=== PATIENT | male | born 1930 | race Caucasian/White ===

== ENCOUNTER 2021-08-11 18:22 | Emergency (ER) | payer OTHER ==
[~2021-08-11] VITALS: Ht 172.7 cm; Wt 72.6 kg
[2021-08-11 18:43] LABS: ABSOLUTE NEUTROPHILS 3.3 thou/uL (1.4-8.2); BASOPHILS 0.8 % (0.0-2.0); EOSINOPHILS 1.7 % (0.0-3.0); HEMATOCRIT 33.8 % (42.0-52.0); HEMOGLOBIN 11.4 gm/dL (14.0-18.0); LYMPHOCYTES 19.3 % (24.0-44.0); MCH 31.3 pg (26.0-34.0); MCHC 33.6 g/dL (28.0-37.0); MCV 93.2 fL (80.0-100.0); PLATELET COUNT 140 thou/uL (150-400); POLYS 69.2 % (36.0-66.0); RBC 3.63 mil/uL (4.50-6.00); RDW 14.5 % (10.5-14.5); WBC 4.8 thou/uL (4.0-11.0)
[2021-08-11 18:55] LABS: CALCIUM 8.5 mg/dL (8.5-10.1); CREATININE 1.7 mg/dL (0.7-1.3); POTASSIUM 4.4 mmol/L (3.5-5.1)
[2021-08-11 19:01] LABS: ALBUMIN 3.5 g/dL (3.4-5.0); TOTAL BILIRUBIN 0.7 mg/dL (0.2-1.0); TOTAL PROTEIN 5.8 g/dL (6.4-8.2)
[2021-08-11] MEDS ORDERED: BENAZEPRIL HCL5 MG PO (20:22)
[2021-08-11] MEDS ORDERED: RAZADYNE 8 MG PO (20:22)
[2021-08-11] MEDS ORDERED: TOPROL XL25 MG PO (20:22)
[2021-08-11] MEDS ORDERED: XARELTO15 MG PO (20:23)
[2021-08-11] MEDS ORDERED: ACETAMINOPHEN325 M1 PO (20:23)
[2021-08-11] MEDS ORDERED: B-125000 MC1 SUBLING (20:23)
[2021-08-11] MEDS ORDERED: MILK OF MA400 MG/5 M PO (20:24)
[2021-08-11] MEDS ORDERED: LOPERAMIDE 2 MG2 M1 PO (20:24)
[2021-08-11 21:09] LABS: URINE BILIRUBIN NEGATIVE (Negative); URINE BLOOD 1+ (Negative); URINE CLARITY CLEAR; URINE COLOR YELLOW; URINE GLUCOSE-RANDOM* NEGATIVE (Negative); URINE KETONES NEGATIVE (Negative); URINE LEUKOCYTES-REFLEX NEGATIVE (Negative); URINE NITRITE-REFLEX NEGATIVE (Negative); URINE PROTEIN (DIPSTICK) NEGATIVE (Negative); URINE UROBILINOGEN 0.2 E.U./dl (0.2-1.0)
[2021-08-11 21:20] LABS: SQUAMOUS 4-10 Moderate /LPF (0-3)
[2021-08-11 21:21] LABS: BACTERIA-REFLEX None Seen /HPF (None Seen); CASTS None Seen /LPF (None Seen); CRYSTALS None Seen /LPF (None Seen); URINE RBC 3-10 Few /HPF (NONE SEEN); URINE WBC-REFLEX 0-5 Rare /HPF (0-5)
[2021-08-12 09:00] VITALS: BP 120/68
--- NOTE | 2021-08-12 09:29 | EKG ---
[place] [address] [address] [place] [address] ELECTROCARDIOGRAM REPORT Name: CRISS ORTEGA Room #: REG SHAW Lebron#: [id number] Admission: 08/11/21 Attend Phys: Discharge: Date of : [birth year] Report #: [id number] [facility] ED Test Date: 2021-08-11 Test Time: 18:31:48 Pat Name: CRISS ORTEGA Department: Room: Gender: M Audiovisual Technician: katherine : [id number] Requested By: Chris Ceron Order Number: [id number] MD: Clarence Matos Measurements Intervals [place] Rate: 70 P: 0 HI: 176 QRS: -83 QRSD: 148 T: -78 QT: 451 QTc: 487 Interpretive Statements Ventricular-paced rhythm No further analysis attempted due to paced rhythm No previous ECG available for comparison Electronically Signed On 08-12-2021 9:29:06 CDT by Clarence Matos [email or web address] <ELECTRONICALLY SIGNED> By: Clarence Matos MD, [facility] 08/12/21 [id number] Clarence Matos MD, FACC /EPI
== END 2021-08-12 10:09 ==
LOC: ER 18:22
PROVIDERS: Emergency Medicine
DX: F03.91 Unspecified dementia, unspecified severity, with behavioral disturbance (principal); R79.89 Other specified abnormal findings of blood chemistry; Z20.822 Contact with and (suspected) exposure to COVID-19; Z79.899 Other long term (current) drug therapy; Z88.8 Allergy status to other drugs, medicaments and biological substances; Z88.7 Allergy status to serum and vaccine